=== PATIENT | female | born 1980 | race Two or more races ===

== ENCOUNTER 2018-09-07 00:40 | Emergency (ER) | payer MEDICARE, BC ==
[~2018-09-07] VITALS: Ht 167.6 cm; Wt 54.4 kg
--- NOTE | 2018-09-07 00:45 | NUR ---
PT BIBRA C/O NAUSEA/VOMITTING X 3 HOURS, WEAK AND DIZZY. PT AXO4. RESPIRATIONS EVEN AND UNLABORED. 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 PENDING EVAL FROM ER .
--- NOTE | 2018-09-07 01:02 | NUR ---
ASHLEE THOMAS AT BEDSIDE.
--- NOTE | 2018-09-07 01:12 | NUR ---
PT AMBULATED TO BATHROOOM W/ STEADY GAIT. URINE SAMPLE OBTAINED AND SENT TO LAB.
[2018-09-07 01:28] LABS: APPEARANCE,URINE Clear (CLEAR); BILIRUBIN,URINE Negative (NEGATIVE); BLOOD, URINE Moderate Ery/uL (NEGATIVE); COLOR,URINE Yellow (YELLOW); KETONES,URINE Negative (NEGATIVE); LEUKOCYTE ESTERASE ,URINE Negative (NEGATIVE); NITRITE, URINE Negative (NEGATIVE); PH,URINE 7.5 (5.0-8.0); PROTEIN,URINE Negative (NEGATIVE); UGLUCOSE 100 MG/DL mg/dL (NEGATIVE); UROBILINOGEN,URINE 0.2 EU/dL (0.2)
[2018-09-07 01:30] LABS: BASOPHILS % (AUTO) 0.2 % (0.0-2.0); EOSINOPHILS % (AUTO) 0.5 % (0.0-6.0); HEMATOCRIT 43 % (33-45); HEMOGLOBIN 14.3 g/dL (11.5-14.8); LYMPHOCYTES # (AUTO) 1.1 /CMM (0.8-4.8); MEAN CORPUSCULAR HGB CONC 34 g/dl (31.0-36.0); MEAN CORPUSCULAR VOLUME 88 fL (82-100); MONOCYTES # (AUTO) 0.5 /CMM (0.1-1.30); NEUTROPHILS # (AUTO) 4.3 /CMM (1.8-8.9); NEUTROPHILS % (AUTO) 72.3 % (43.0-81.0); PLATELET COUNT (AUTO) 250 /CMM (150-450); RED BLOOD CELL COUNT(AUTO) 4.87 MIL/uL (4.0-5.2)
[2018-09-07] MEDS ORDERED: METOCLOPRAMIDE HCL 10 MG/2 ML VIAL IV ONE (01:30)
[2018-09-07] MEDS ORDERED: IV NS 0.9% 1,000 ML BAG IV ONE (01:30)
[2018-09-07 01:38] LABS: CREATININE 0.8 mg/dL (0.6-1.3); POTASSIUM 3.4 mmol/L (3.5-5.1)
[2018-09-07 01:43] LABS: ALBUMIN 4.1 g/dL (3.4-5.0); BILIRUBIN,DIRECT 0.1 mg/dL (0.0-0.2); BILIRUBIN,TOTAL 0.2 mg/dL (0.2-1.0); TOTAL PROTEIN, SERUM 7.9 g/dL (6.4-8.2)
[2018-09-07 01:46] LABS: BACTERIA,URINE Rare /HPF (None Seen); RBC,URINE 0-2 /HPF (0-2); SQUAMOUS EPITHELIAL CELL,UR Rare /HPF (None Seen); WBC,URINE 0-2 /HPF (0-3)
[2018-09-07 01:47] LABS: MAGNESIUM 2.1 mg/dL (1.8-2.4)
[2018-09-07 01:51] LABS: ALCOHOL, BLOOD < 3 mg/dL (0-0)
[2018-09-07] MEDS ORDERED: POTASSIUM CHLORIDE 20 MEQ TAB.PRT.SR PO ONE ×2 (02:00→02:04)
--- NOTE | 2018-09-07 03:23 | NUR ---
Patient discharged to home in stable condition. Written and verbal after care instructions given. Patient verbalizes understanding of instruction. IV removed. Catheter intact and site benign. Pressure and 4x4 applied to site. No bleeding noted.
[2018-09-07 03:26] VITALS: BP 120/69
== END 2018-09-07 03:27 | disposition home or self-care (01) ==
LOC: ER 00:45
DX: R11.10 Vomiting, unspecified (principal); E87.6 Hypokalemia; K59.00 Constipation, unspecified; J45.909 Unspecified asthma, uncomplicated; Z90.89 Acquired absence of other organs
CPT/HCPCS: 36415; 80048; 80076; 80305; 80307; 81001; 83690; 83735; 84702; 85025; 96360; 99283; J7030; 81000-TC; 82962-TC; G0480